=== PATIENT | male | born 1960 | race Caucasian/White ===

== ENCOUNTER 2019-07-14 13:17 | Emergency (ER) | payer MEDICAID ==
[~2019-07-14] VITALS: Ht 188 cm; Wt 109.0 kg
[~2019-07-14 13:17] MED LIST: ASPI-1264 PO; BENA40TA73 PO; DIPH-423 PO; FISH OIL DR 1,1 EACH PO; HCTZ25T PO; HYT1T PO; NOR5T PO; NORCO10T PO; ZOC40T PO
[2019-07-14] MEDS ORDERED: ketorolac trometh inj. 60 MG/2 ML VIAL IM ONE (14:15)
[2019-07-14] MEDS ORDERED: orphenadrine citrate 60mg/2ml inj. IM ONE (14:15)
[2019-07-14] MEDS ORDERED: NAPR-56 PO (14:18)
[2019-07-14] MEDS ORDERED: METH-360 PO (14:18)
[2019-07-14 15:34] VITALS: BP 164/88
== END 2019-07-14 15:44 | disposition home or self-care (01) ==
LOC: ER 13:18
DX: S39.012A Strain of muscle, fascia and tendon of lower back, initial encounter (principal); I10 Essential (primary) hypertension; G89.29 Other chronic pain; Z88.1 Allergy status to other antibiotic agents; Z79.82 Long term (current) use of aspirin; Z79.899 Other long term (current) drug therapy; X50.1XXA Overexertion from prolonged static or awkward postures, initial encounter; Y93.89 Activity, other specified; Y92.89 Other specified places as the place of occurrence of the external cause; Y99.8 Other external cause status
CPT/HCPCS: 72100; 96372; 99283; J1885; J2360

== ENCOUNTER 2021-06-03 20:14 | Emergency (ER) | payer MEDICAID ==
[~2021-06-03 20:14] MED LIST changes: -HCTZ25T PO; +HYDR25TA5 PO; +METH-360 PO
== END 2021-06-03 23:03 | disposition left against medical advice (07) ==
LOC: ER 20:15
DX: R10.9 Unspecified abdominal pain (principal); Z53.21 Procedure and treatment not carried out due to patient leaving prior to being seen by health care provider

== ENCOUNTER 2021-09-05 12:48 | Emergency (ER) | payer MEDICAID ==
[~2021-09-05] VITALS: Ht 188 cm; Wt 110.0 kg
[2021-09-05 12:59] VITALS: BP 164/90
[2021-09-05 13:44] LABS: BASOPHILS # (AUTO) 0.1 X10'3 (0-0.2); BASOPHILS % (AUTO) 0.5 % (0-1); EOSINOPHILS # (AUTO) 0.3 X10'3 (0-0.9); EOSINOPHILS % (AUTO) 2.2 % (0-6); HEMATOCRIT 38.9 % (42.0-52.0); HEMOGLOBIN 13.6 g/dl (14.0-17.9); LYMPHOCYTES # (AUTO) 2.1 X10'3 (1.1-4.8); LYMPHOCYTES % (AUTO) 17.5 % (21-51); MEAN CORPUSCULAR VOLUME 91.4 FL (78-98); MEAN PLATELET VOLUME 8.2 FL (7.4-10.4); MONOCYTES # (AUTO) 0.7 X10'3 (0-0.9); MONOCYTES % (AUTO) 6.2 % (2-12); NEUTROPHILS # (AUTO) 8.8 X10'3 (1.8-7.7); NEUTROPHILS % (AUTO) 73.6 % (42-75); PLATELET COUNT 363 X10'3 (140-440); RED BLOOD COUNT 4.26 X10'6 (4.70-6.10); RED CELL DISTRIBUTION WIDTH 12.7 % (11.5-14.5); WHITE BLOOD COUNT 11.9 X10'3 (4.5-11.0)
[2021-09-05 14:03] LABS: PARTIAL THROMBOPLASTIN TIME 30 SECONDS (22-32)
[2021-09-05 14:08] LABS: ALANINE AMINOTRANSFERASE 42 U/L (12-78); ALBUMIN 3.7 G/DL (3.4-5.0); ALKALINE PHOSPHATASE 90 IU/L (46-116); ANION GAP 14 (8-16); ASPARTATE AMINO TRANSFERASE 20 U/L (10-37); BILIRUBIN,TOTAL 0.5 MG/DL (0.1-1.0); BLOOD UREA NITROGEN 17 MG/DL (7-18); BUN/CREATININE RATIO 11.8 (5.4-32.0); CALCIUM 8.4 MG/DL (8.5-10.1); CHLORIDE 105 MMOL/L (99-107); CREATININE 1.44 MG/DL (0.60-1.10); GLUCOSE 168 MG/DL (70-104); LIPASE 53 U/L (73-393); POTASSIUM 3.5 MMOL/L (3.5-5.1); SODIUM 142 MMOL/L (135-145); TOTAL CARBON DIOXIDE 23.3 MMOL/L (24-32); TOTAL PROTEIN 7.5 G/DL (6.4-8.2); eGFR 50 ML/MIN
[2021-09-05] MEDS ORDERED: iohexol 300mg/ml 100ml inj. ONE (16:24)
== END 2021-09-05 20:08 | disposition left against medical advice (07) ==
LOC: ER 12:49
DX: R10.32 Left lower quadrant pain (principal); I10 Essential (primary) hypertension; G89.29 Other chronic pain; F17.210 Nicotine dependence, cigarettes, uncomplicated; Z88.1 Allergy status to other antibiotic agents; Z79.82 Long term (current) use of aspirin; Z79.899 Other long term (current) drug therapy; Z53.21 Procedure and treatment not carried out due to patient leaving prior to being seen by health care provider
CPT/HCPCS: 36415; 80053; 83690; 85025; 85610; 85730; 86885; 86900; 86901; Q9967

== ENCOUNTER 2022-03-30 08:30 | Day surgery (SDC) | payer MEDICAID ==
[2022-03-24 11:48] LABS: BASOPHILS # (AUTO) 0.1 X10'3 (0-0.2); BASOPHILS % (AUTO) 0.6 % (0-1); EOSINOPHILS # (AUTO) 0.4 X10'3 (0-0.9); EOSINOPHILS % (AUTO) 4.1 % (0-6); LYMPHOCYTES # (AUTO) 1.8 X10'3 (1.1-4.8); LYMPHOCYTES % (AUTO) 19.2 % (21-51); MEAN CORPUSCULAR HEMOGLOBIN 30.4 PG (27.0-31.0); MEAN CORPUSCULAR HGB CONC 33.7 g/dL (33.0-36.5); MEAN CORPUSCULAR VOLUME 90.2 FL (78-98); MEAN PLATELET VOLUME 7.7 FL (7.4-10.4); MONOCYTES # (AUTO) 0.5 X10'3 (0-0.9); MONOCYTES % (AUTO) 5.8 % (2-12); NEUTROPHILS # (AUTO) 6.4 X10'3 (1.8-7.7); NEUTROPHILS % (AUTO) 70.3 % (42-75); PRE OP HEMATOCRIT 40.3 % (42.0-52.0); PRE OP HEMOGLOBIN 13.6 g/dL (14.0-17.9); PRE OP PLATELET COUNT 391 X10'3 (140-440); RED BLOOD COUNT 4.47 X10'6 (4.70-6.10); RED CELL DISTRIBUTION WIDTH 13.1 % (11.5-14.5)
[2022-03-24 12:03] LABS: ALBUMIN 3.6 G/DL (3.4-5.0); ALBUMIN/GLOBULIN RATIO 0.9 (1.1-1.5); ALKALINE PHOSPHATASE 103 IU/L (46-116); BLOOD UREA NITROGEN 17 MG/DL (7-18); BUN/CREATININE RATIO 12.1 (5.4-32.0); CALCIUM 8.6 MG/DL (8.5-10.1); CHLORIDE 102 MMOL/L (99-107); CREATININE 1.41 MG/DL (0.60-1.10); PRE OP ALT 37 U/L (30-65); PRE OP ANION GAP 9 (8-16); PRE OP AST 19 U/L (10-37); PRE OP BILIRUB, TOTAL 0.5 MG/DL (0.0-1.0); PRE OP GLUCOSE 190 MG/DL (70-104); PRE OP POTASSIUM 3.9 MMOL/L (3.4-5.1); PRE OP SODIUM 138 MMOL/L (135-145); TOTAL CARBON DIOXIDE 27.4 MMOL/L (24-32); TOTAL PROTEIN 7.4 G/DL (6.4-8.2); eGFR 51 ML/MIN
[2022-03-24 12:05] LABS: HEMOGLOBIN A1C 7.4 % (4.5-6.2)
[~2022-03-30] VITALS: Ht 188 cm; Wt 109.5 kg
[2022-03-30] VITALS (15 sets, daily range): BP systolic 120–167; BP diastolic 65–82
[~2022-03-30 08:30] MED LIST changes: -DIPH-423 PO; +DOCUMENT DATE & TIME OF BETA-BLOCKER PO ONE; -FISH OIL DR 1,1 EACH PO; +FURO40TA4 PO; -HYDR25TA5 PO; +INSU100I31 SQ; +LABE100T5 PO; -METH-360 PO; +NIFE90TA61 PO; -NOR5T PO; +TRAZ150T78 PO; -ZOC40T PO; +albuterol 2.5 MG/3 ML nebule NEB ONE; +famotidine 20mg tablet PO ONE; +ringers solution, lacted 1,000 ML IV SCH
[2022-03-30] MEDS ORDERED: normal saline 500ml IV soln 500 ML IV ONE (10:35)
[2022-03-30] MEDS ORDERED: HYDROcodone/acetaminophen 10/325mg tab PO ONE (11:30)
[2022-03-30] MEDS ORDERED: BUPIVAcaine 0.5% inj/PF 0 ML ONE (12:15)
[2022-03-30] MEDS ORDERED: epiNEPHrine 1 mg/ml inj ONE (12:40)
[2022-03-30] MEDS ORDERED: dexamethasone sod phosphate 10mg/ml inj ONE (13:17)
[2022-03-30] MEDS ORDERED: sevoflurane 250ml liquid IH ONE (13:17)
[2022-03-30] MEDS ORDERED: LIDOcaine 1% (10mg/ml)w/preservative inj. 20ml MDV ONE (13:17)
[2022-03-30] MEDS ORDERED: ondansetron/PF 4mg/2ml inj ONE (13:17)
[2022-03-30] MEDS ORDERED: fentaNYL/PF 50MCG/1 ML 2ML syringe ONE (13:21)
[2022-03-30] MEDS ORDERED: MIDAZolam 1 MG/ML 5ML VIAL ONE (13:21)
[2022-03-30] MEDS ORDERED: ROPIVAcaine 0.5% (5mg/ml) 30ml vial ONE (13:22)
[2022-03-30] MEDS ORDERED: propofol inj 20 ML IV ONE (13:23)
[2022-03-30] MEDS ORDERED: clindamycin phosphate 150mg/ml inj. ONE ×2 (13:32→13:49)
[2022-03-30] MEDS ORDERED: vancomycin 1,500 MG in NS 300ml IV soln IV ONE (14:05)
[2022-03-30] MEDS ORDERED: ringers solution, lacted 1,000 ML IV SCH (14:20)
[2022-03-30] MEDS ORDERED: ROPIVAcaine 0.2%/PF PUMP/bolus 545 ML INTERSCALE SCH (14:20)
[2022-03-30] MEDS ORDERED: morphine 2 MG/ML inj. syringe IV PRN (14:20)
[2022-03-30] MEDS ORDERED: morphine 4 MG/ML inj SYRINge IV PRN (14:20)
[2022-03-30] MEDS ORDERED: ondansetron/PF 4mg/2ml inj IV PRN (14:20)
[2022-03-30] MEDS ORDERED: meperidine/PF 25mg/ml syringe IV PRN ×3 (14:20)
[2022-03-30] MEDS ORDERED: proCHLORperazine 10 MG/2 ml inj IV PRN (14:20)
[2022-03-30] MEDS ORDERED: ROPIVAcaine 0.2% (10 MG/5 ML) BOLUS INJECTION INTERSCALE PRN (14:20)
[2022-03-30] MEDS ORDERED: HYDROcodone/acetaminophen 10/325mg tab PO PRN (15:40)
--- NOTE | 2022-03-30 15:45 | NUR ---
Received from OR via [facility], accompanied by Anesthesiologist FOSTER and report given by Anesthesiolgist, ACOMPANIED ALSO BY VOLUNTEER COORDINATOR. PT AWAKE TO VERBAL STIMULI, VSS. SHOULDER IMMOBILIZER APPROPRIETLY IN PLACE, WITH ICE APPLIED. DRESSING TO INCISION DRY AND INTACT. NO COMPLAINTS OF PAIN. PATENT AIRWAY, BREATHS NORMAL. Addendum: 03/30/22 at 1610 by Humphrey Schwab RN Amended: Links added.
--- NOTE | 2022-03-30 18:15 | NUR ---
PT DISCHARGED HOME WITH SIGNIFICANT OTHER IN POV, BROUGHT TO CAR VIA WHEELCHAIR WITHOUT INCIDENT. DC PAPERWORK PROVIDED WITH INSTRUCTIONS. QUESTIONS ADDRESSED AND FOLLOW UP PLAN OF CARE DISCUSSED. PAIN PUMP EDUCATION ALSO PROVIDED WITH QUESTIONS ADDRESSED. PT AND SIGNIFICANT OTHER VERBALIZED UNDERSTANDING. PT INDEPENDENT IN AMBULATION, STEADY GAIT. Addendum: 03/30/22 at 1907 by Humphrey Schwab RN Amended: Links added.
== END 2022-03-30 18:15 | disposition home or self-care (01) ==
LOC: PAS 08:30 → UNDOADMIN 08:42 → PAS IN 08:42 → ORTHO 4S 11:00 → PAS IN 11:00 → UNDODISIN 14:05 → PAS 18:15
PROVIDERS: ATTEND Orthopaedic Surgery
DX: M19.011 Primary osteoarthritis, right shoulder (principal); M75.51 Bursitis of right shoulder; M75.31 Calcific tendinitis of right shoulder; M75.41 Impingement syndrome of right shoulder; M25.711 Osteophyte, right shoulder; G89.18 Other acute postprocedural pain; F17.210 Nicotine dependence, cigarettes, uncomplicated; E11.22 Type 2 diabetes mellitus with diabetic chronic kidney disease; I12.9 Hypertensive chronic kidney disease with stage 1 through stage 4 chronic kidney disease, or unspecified chronic kidney disease; N18.30 Chronic kidney disease, stage 3 unspecified; J44.9 Chronic obstructive pulmonary disease, unspecified; G47.30 Sleep apnea, unspecified; I25.2 Old myocardial infarction; Z95.0 Presence of cardiac pacemaker; Z88.1 Allergy status to other antibiotic agents; Z79.899 Other long term (current) drug therapy; Z79.82 Long term (current) use of aspirin; Z20.822 Contact with and (suspected) exposure to COVID-19
CPT/HCPCS: 29824; 29826; 29828; 36415; 64416; 71046; 76942; 80053; 82948; 83036; 85025; C1713; J2250; J2704; J2795; J3010; J3490; J7120; U0003; U0005; Z7506; Z7508; Z7512; A4565; A4618; A6253; A6449; A7000; J0171; J1100; J2405; J3370; J7040; S0020

== ENCOUNTER 2022-07-07 09:43 | Outpatient (CLI) | payer MEDICAID ==
[~2022-07-07 09:43] MED LIST changes: -DOCUMENT DATE & TIME OF BETA-BLOCKER PO ONE; -albuterol 2.5 MG/3 ML nebule NEB ONE; -famotidine 20mg tablet PO ONE; -ringers solution, lacted 1,000 ML IV SCH
[2022-07-07 10:26] LABS: BASOPHILS % (AUTO) 0.2 % (0-1); EOSINOPHILS # (AUTO) 0.2 X10'3 (0-0.9); HEMATOCRIT 39.8 % (42.0-52.0); HEMOGLOBIN 13.8 g/dl (14.0-17.9); LYMPHOCYTES # (AUTO) 2.1 X10'3 (1.1-4.8); LYMPHOCYTES % (AUTO) 19.3 % (21-51); MEAN CORPUSCULAR HEMOGLOBIN 31.1 PG (27.0-31.0); MEAN CORPUSCULAR HGB CONC 34.6 g/dL (33.0-36.5); MEAN PLATELET VOLUME 8.1 FL (7.4-10.4); MONOCYTES # (AUTO) 0.6 X10'3 (0-0.9); MONOCYTES % (AUTO) 5.8 % (2-12); NEUTROPHILS # (AUTO) 7.9 X10'3 (1.8-7.7); NEUTROPHILS % (AUTO) 72.7 % (42-75); PLATELET COUNT 391 X10'3 (140-440); RED BLOOD COUNT 4.42 X10'6 (4.70-6.10); WHITE BLOOD COUNT 10.9 X10'3 (4.5-11.0)
[2022-07-07 10:38] LABS: ALANINE AMINOTRANSFERASE 35 U/L (12-78); ALBUMIN 3.5 G/DL (3.4-5.0); ALBUMIN/GLOBULIN RATIO 0.9 (1.1-1.5); ALKALINE PHOSPHATASE 107 IU/L (46-116); ANION GAP 10 (8-16); ASPARTATE AMINO TRANSFERASE 19 U/L (10-37); BILIRUBIN,TOTAL 0.4 MG/DL (0.1-1.0); BLOOD UREA NITROGEN 23 MG/DL (7-18); CALCIUM 8.5 MG/DL (8.5-10.1); CHLORIDE 102 MMOL/L (99-107); CHOL/HDL RATIO 6.1 (0.00-4.99); CHOLESTEROL 177 MG/DL (0-200); CREATININE 1.44 MG/DL (0.60-1.10); GLUCOSE 134 MG/DL (70-104); HDL CHOLESTEROL 29 MG/DL (35-60); POTASSIUM 3.7 MMOL/L (3.5-5.1); SODIUM 139 MMOL/L (135-145); TOTAL CARBON DIOXIDE 26.7 MMOL/L (24-32); TOTAL PROTEIN 7.3 G/DL (6.4-8.2); eGFR 50 ML/MIN
[2022-07-07 10:39] LABS: LDL CHOLESTEROL 122 MG/DL (50-100); TRIGLYCERIDES 143 MG/DL (20-135)
== END 2022-07-07 23:59 | disposition home or self-care (01) ==
LOC: LAB 09:43
PROVIDERS: ATTEND Physician Assistant
DX: I48.0 Paroxysmal atrial fibrillation (principal); R06.02 Shortness of breath; R55 Syncope and collapse
CPT/HCPCS: 36415; 80053; 80061; 85025

== ENCOUNTER 2022-09-28 10:14 | Emergency (ER) | payer MEDICAID ==
[~2022-09-28] VITALS: Ht 190.5 cm; Wt 106.5 kg
[~2022-09-28 10:14] MED LIST changes: -LABE100T5 PO; +LABE100T8 PO
[2022-09-28 10:39] VITALS: BP 158/69
== END 2022-09-28 11:27 | disposition home or self-care (01) ==
LOC: ER 10:16
DX: S93.401A Sprain of unspecified ligament of right ankle, initial encounter (principal); G89.29 Other chronic pain; M54.9 Dorsalgia, unspecified; I10 Essential (primary) hypertension; W51.XXXA Accidental striking against or bumped into by another person, initial encounter; Y93.89 Activity, other specified; Y92.89 Other specified places as the place of occurrence of the external cause; Y99.8 Other external cause status
CPT/HCPCS: 73630; 99283; A6449

== ENCOUNTER 2023-10-15 07:12 | Outpatient (CLI) | payer MEDICAID ==
[2023-10-15] MEDS ORDERED: iohexol 350MG/ML 100ml bottle IV ONE (07:30)
[2023-10-15 07:42] LABS: BASOPHILS # (AUTO) 0.1 X10'3 (0-0.2); BASOPHILS % (AUTO) 0.4 % (0-1); EOSINOPHILS # (AUTO) 0.1 X10'3 (0-0.9); EOSINOPHILS % (AUTO) 0.9 % (0-6); HEMATOCRIT 40.9 % (42.0-52.0); LYMPHOCYTES # (AUTO) 2.5 X10'3 (1.1-4.8); LYMPHOCYTES % (AUTO) 18.9 % (21-51); MEAN CORPUSCULAR HEMOGLOBIN 31.5 PG (27.0-31.0); MEAN CORPUSCULAR HGB CONC 34.3 g/dL (33.0-36.5); MEAN CORPUSCULAR VOLUME 91.9 FL (78-98); MEAN PLATELET VOLUME 7.8 FL (7.4-10.4); MONOCYTES % (AUTO) 7.6 % (2-12); NEUTROPHILS # (AUTO) 9.7 X10'3 (1.8-7.7); NEUTROPHILS % (AUTO) 72.2 % (42-75); PLATELET COUNT 376 X10'3 (140-440); RED BLOOD COUNT 4.46 X10'6 (4.70-6.10); RED CELL DISTRIBUTION WIDTH 13.2 % (11.5-14.5); WHITE BLOOD COUNT 13.4 X10'3 (4.5-11.0)
[2023-10-15 07:52] LABS: APTT 27 SECONDS (22-32); PROTHROMBIN TIME 10.5 SECONDS (9.0-12.0)
[2023-10-15 08:00] LABS: ALANINE AMINOTRANSFERASE 36 U/L (12-78); ALBUMIN 3.4 G/DL (3.4-5.0); ALBUMIN/GLOBULIN RATIO 0.9 (1.1-1.5); ALKALINE PHOSPHATASE 107 IU/L (46-116); ANION GAP 7 (8-16); ASPARTATE AMINO TRANSFERASE 17 U/L (10-37); BILIRUBIN,TOTAL 0.3 MG/DL (0.1-1.0); BLOOD UREA NITROGEN 26 MG/DL (7-18); BUN/CREATININE RATIO 16.7 (10.0-20.0); CALCIUM 8.8 MG/DL (8.5-10.1); CHLORIDE 101 MMOL/L (99-107); CREATININE 1.56 MG/DL (0.60-1.10); GLUCOSE 129 MG/DL (70-104); POTASSIUM 3.5 MMOL/L (3.5-5.1); SODIUM 136 MMOL/L (135-145); TOTAL CARBON DIOXIDE 28.3 MMOL/L (24-32); eGFR 45 ML/MIN
== END 2023-10-15 23:59 | disposition home or self-care (01) ==
LOC: RAD 07:12
PROVIDERS: ATTEND Student in an Organized Health Care Education/Training Program
DX: I70.0 Atherosclerosis of aorta (principal); I25.10 Atherosclerotic heart disease of native coronary artery without angina pectoris; M47.814 Spondylosis without myelopathy or radiculopathy, thoracic region; I48.92 Unspecified atrial flutter; I48.91 Unspecified atrial fibrillation
CPT/HCPCS: 36415; 75572; 80053; 85025; 85610; 85730; J3490; Q9967

== ENCOUNTER 2023-11-04 11:20 | Inpatient (IN) | payer MEDICAID ==
[2023-11-01 10:51] LABS: BILIRUBIN,URINE NEGATIVE (Neg); CLARITY,URINE CLEAR (Clear); COLOR,URINE YELLOW (Yellow); GLUCOSE, URINE NEGATIVE (Neg); KETONES,URINE NEGATIVE (Neg); LEUKOCYTE ESTERASE ,URINE NEGATIVE (Neg); NITRITES, URINE NEGATIVE (Neg); OCCULT BLOOD,URINE NEGATIVE (Neg); PH,URINE 5.5 (4.8-8.0); PROTEIN,URINE 100 mg/dl (Neg); UROBILINOGEN,URINE 0.2 E.U/dL (0.2-1.0)
[2023-11-01 10:54] LABS: BASOPHILS # (AUTO) 0.1 X10'3 (0-0.2); BASOPHILS % (AUTO) 0.7 % (0-1); EOSINOPHILS # (AUTO) 0.4 X10'3 (0-0.9); EOSINOPHILS % (AUTO) 3.6 % (0-6); LYMPHOCYTES # (AUTO) 1.9 X10'3 (1.1-4.8); LYMPHOCYTES % (AUTO) 19.2 % (21-51); MEAN CORPUSCULAR HEMOGLOBIN 31.6 PG (27.0-31.0); MEAN CORPUSCULAR HGB CONC 34.2 g/dL (33.0-36.5); MEAN CORPUSCULAR VOLUME 92.6 FL (78-98); MONOCYTES # (AUTO) 0.7 X10'3 (0-0.9); MONOCYTES % (AUTO) 7.6 % (2-12); NEUTROPHILS # (AUTO) 6.8 X10'3 (1.8-7.7); NEUTROPHILS % (AUTO) 68.9 % (42-75); PRE OP HEMATOCRIT 42.2 % (42.0-52.0); PRE OP HEMOGLOBIN 14.4 g/dL (14.0-17.9); PRE OP PLATELET COUNT 356 X10'3 (140-440); PRE OP WHITE BLOOD COUNT 9.8 10'3 (4.8-10.8); RED BLOOD COUNT 4.56 X10'6 (4.70-6.10); RED CELL DISTRIBUTION WIDTH 13.3 % (11.5-14.5)
[2023-11-01 10:56] LABS: UA COLLECTION TYPE CLN CATCH MIDSTREAM
[2023-11-01 10:58] LABS: BACTERIA,URINE FEW /HPF (Neg); RBC,URINE 0-2 /HPF (0-2); SQUAMOUS EPITHELIAL CELL,UR NONE SEEN /LPF (FEW); WBC,URINE 0-4 /HPF (0-4)
[2023-11-01 11:05] LABS: PRE OP PROTIME 10.5 SECONDS (9.0-12.0)
[2023-11-01 11:06] LABS: ALBUMIN 3.3 G/DL (3.4-5.0); ALBUMIN/GLOBULIN RATIO 0.8 (1.1-1.5); ALKALINE PHOSPHATASE 113 IU/L (46-116); BLOOD UREA NITROGEN 17 MG/DL (7-18); BUN/CREATININE RATIO 11.7 (10.0-20.0); CALCIUM 8.8 MG/DL (8.5-10.1); CHLORIDE 100 MMOL/L (99-107); CREATININE 1.45 MG/DL (0.60-1.10); PRE OP ALT 43 U/L (30-65); PRE OP ANION GAP 6 (8-16); PRE OP AST 18 U/L (10-37); PRE OP BILIRUB, TOTAL 0.2 MG/DL (0.0-1.0); PRE OP GLUCOSE 111 MG/DL (70-104); PRE OP SODIUM 134 MMOL/L (135-145); TOTAL CARBON DIOXIDE 28.5 MMOL/L (24-32); TOTAL PROTEIN 7.2 G/DL (6.4-8.2); eGFR 49 ML/MIN
[2023-11-01 11:20] LABS: PRE OP POTASSIUM 3.3 MMOL/L (3.4-5.1)
[2023-11-01 11:29] LABS: HEMOGLOBIN A1C 7.1 % (4.5-6.2)
[2023-11-04] VITALS (28 sets, daily range): BP systolic 147–212; BP diastolic 73–114; PULSE 60–82; RESP 10–19; TEMP 97.5–98; O2SAT 76–99
[~2023-11-04] VITALS: Ht 188 cm; Wt 111.1 kg
[~2023-11-04 11:20] MED LIST changes: +ALBU8HFA PO; +APIX5TAB3 PO; -ASPI-1264 PO; +CLON0.3T PO; +DOCUMENT DATE & TIME OF BETA-BLOCKER PO ONE; +DOXA-8 PO; +GABA300C PO; -LABE100T8 PO; +LABE200T8 PO; +NITR0.4T51 SL; +TIOT4MIS3 PO; +TRAZ-251 PO; -TRAZ150T78 PO; +famotidine 20mg tablet PO ONE; +ondansetron/PF 4mg/2ml inj IV PRN; +ringers solution, lacted 1,000 ML IV SCH; +vancomycin 1,500 MG in NS 300ml IV soln IV ONE
[2023-11-04] MEDS ORDERED: ringers solution, lacted 1,000 ML IV SCH (12:35)
[2023-11-04] MEDS ORDERED: morphine 2 MG/ML inj. syringe IV PRN (12:35)
[2023-11-04] MEDS ORDERED: morphine 4 MG/ML inj SYRINge IV PRN (12:35)
[2023-11-04] MEDS ORDERED: meperidine/PF 25mg/ml syringe IV PRN ×2 (12:35)
[2023-11-04] MEDS ORDERED: proCHLORperazine 10 MG/2 ml inj IV PRN ×2 (12:35→14:05)
[2023-11-04] MEDS ORDERED: ondansetron/PF 4mg/2ml inj IV PRN ×2 (12:35→14:05)
[2023-11-04] MEDS ORDERED: HYDROcodone/acetaminophen 10/325mg tab PO PRN (12:45)
[2023-11-04] MEDS ORDERED: albuterol 2.5 MG/3 ML nebule NEB PRN (12:45)
[2023-11-04] MEDS ORDERED: traZODone 50mg tablet PO PRN (12:45)
[2023-11-04] MEDS ORDERED: nitroGLYCERIN 0.4mg SUBLingual tab SL PRN (12:45)
[2023-11-04] MEDS ORDERED: iohexol 350 MG/ML 50ML vial IV ONE ×3 (12:50→13:54)
[2023-11-04] MEDS ORDERED: heparin 1,000 UNITS/NS 500ml 500 ML ONE ×2 (12:50→12:51)
[2023-11-04] MEDS ORDERED: LIDOcaine 1% (10mg/ml) 2ml vial ONE (12:53)
[2023-11-04] MEDS: cloNIDine 0.1 mg tablet PO SCH ×2 (13:00→22:19)
[2023-11-04] MEDS ORDERED: rocuronium 10mg/ml inj IV ONE (13:01)
[2023-11-04] MEDS ORDERED: midazolam 1 mg/ML 2ml injection ONE (13:01)
[2023-11-04] MEDS ORDERED: fentaNYL /PF 50mcg/ml 5ml ampule ONE (13:01)
[2023-11-04] MEDS ORDERED: ondansetron/PF 4mg/2ml inj ONE (13:02)
[2023-11-04] MEDS ORDERED: propofol inj 20 ML IV ONE (13:02)
[2023-11-04] MEDS ORDERED: sevoflurane 250ml liquid IH ONE (13:02)
[2023-11-04] MEDS ORDERED: heparin 1,000unit/ml 10ml vial 10 ML ONE ×2 (13:15→13:29)
[2023-11-04] MEDS ORDERED: dexamethasone sod phosphate 4mg/ml inj. ONE (13:30)
[2023-11-04] MEDS ORDERED: neostigmine methylsulfate 1 MG/ML 10ml vial ONE (14:03)
[2023-11-04] MEDS ORDERED: glycopyrrolate 0.2mg/ml inj ONE (14:03)
[2023-11-04] MEDS ORDERED: labetalol 20mg/4ml (5mg/ml) syringe IV PRN (14:05)
[2023-11-04] MEDS ORDERED: potassium CL 10mEq/100ml bag 100 ML IV PRN (14:05)
[2023-11-04] MEDS ORDERED: hydrALAZINE 20mg/ml inj. IV PRN ×2 (14:05→16:40)
[2023-11-04] MEDS ORDERED: magnesium 2GM in 50ml NS 50 ML IV PRN (14:05)
[2023-11-04] MEDS ORDERED: potassium Cl 20 mEq SR tablet PO PRN (14:05)
[2023-11-04] MEDS ORDERED: acetaminophen 325mg tablet PO PRN (14:05)
[2023-11-04] MEDS ORDERED: potassium Cl 40MEQ/1/2NS 520ml 520 ML IV PRN (14:05)
[2023-11-04] MEDS ORDERED: pantoprazole 40mg Tablet.DR PO PRN (14:05)
[2023-11-04] MEDS ORDERED: potassium Cl 40MEQ/270ML bag 250 ML IV PRN (14:05)
[2023-11-04] MEDS ORDERED: ALPRAZolam 0.25mg tablet PO PRN (14:05)
[2023-11-04] MEDS ORDERED: diphenhydrAMINE 25mg capsule PO PRN (14:05)
[2023-11-04] MEDS ORDERED: potassium Cl 20mEq/100mL bag 100 ML IV PRN (14:05)
[2023-11-04] MEDS ORDERED: magnesium 4gm in 100ml NS 100 ML IV PRN (14:05)
[2023-11-04] MEDS: normal saline 1000ml 1,000 ML IV SCH ×2 (14:05→23:26)
[2023-11-04] MEDS ORDERED: docusate sod 100mg capsule PO PRN (14:05)
[2023-11-04] MEDS ORDERED: HYDROcodone/acetaminophen 5mg/325mg tablet PO PRN (14:25)
[2023-11-04] MEDS: labetalol 20mg/4ml (5mg/ml) syringe IV PRN ×2 (15:47→16:06)
[2023-11-04] MEDS: meperidine/PF 25mg/ml syringe IV PRN ×2 (15:49→16:01)
[2023-11-04] MEDS: sod chloride 0.9% 10ml flush syringe IV SCH ×2 (16:00→23:26)
[2023-11-04] MEDS ORDERED: terazosin 5mg capsule PO SCH (21:00)
[2023-11-04] MEDS ORDERED: insulin glargine (Lantus) pen - multi-dose SQ SCH (21:00)
[2023-11-04] MEDS: labetalol 100mg tablet PO SCH (22:18)
[2023-11-04] MEDS: apixaban 5mg tablet PO SCH (22:20)
[2023-11-05] MEDS ORDERED: hydrALAZINE 20mg/ml inj. IV ONE ×2 (01:25→04:00)
[2023-11-05 06:00] VITALS: BP 163/75; PULSE 96; RESP 12; TEMP 97.7; O2SAT 96
[2023-11-05] MEDS ORDERED: doxazosin mesylate 2mg tablet PO SCH (08:00)
[2023-11-05] MEDS ORDERED: lisinopril 20mg tablet PO SCH (08:00)
[2023-11-05] MEDS ORDERED: gabapentin 300mg capsule PO SCH (08:00)
[2023-11-05] MEDS ORDERED: furosemide 40mg tablet PO SCH (08:00)
[2023-11-05] MEDS ORDERED: (Tiotropium Br/Olodaterol HCl (Stiolto Respimat Inhal Spray) PO SCH (08:00)
[2023-11-05] MEDS ORDERED: NIFEdipine XL 30mg tablet PO SCH (08:00)
[2023-11-05] MEDS: apixaban 5mg tablet PO SCH (08:50)
[2023-11-05] MEDS: cloNIDine 0.1 mg tablet PO SCH (08:50)
[2023-11-05] MEDS: labetalol 100mg tablet PO SCH (08:50)
[2023-11-05] MEDS: sod chloride 0.9% 10ml flush syringe IV SCH (08:51)
[2023-11-05 09:29] LABS: BASOPHILS # (AUTO) 0.1 X10'3 (0-0.2); BASOPHILS % (AUTO) 0.6 % (0-1); EOSINOPHILS % (AUTO) 0.2 % (0-6); HEMATOCRIT 42.2 % (42.0-52.0); HEMOGLOBIN 13.9 g/dl (14.0-17.9); LYMPHOCYTES # (AUTO) 1.5 X10'3 (1.1-4.8); LYMPHOCYTES % (AUTO) 10.4 % (21-51); MEAN CORPUSCULAR HEMOGLOBIN 30.8 PG (27.0-31.0); MEAN CORPUSCULAR HGB CONC 32.9 g/dL (33.0-36.5); MEAN CORPUSCULAR VOLUME 93.5 FL (78-98); MEAN PLATELET VOLUME 8.6 FL (7.4-10.4); MONOCYTES # (AUTO) 0.8 X10'3 (0-0.9); MONOCYTES % (AUTO) 5.8 % (2-12); NEUTROPHILS # (AUTO) 11.9 X10'3 (1.8-7.7); PLATELET COUNT 368 X10'3 (140-440); RED BLOOD COUNT 4.51 X10'6 (4.70-6.10); RED CELL DISTRIBUTION WIDTH 13.6 % (11.5-14.5); WHITE BLOOD COUNT 14.3 X10'3 (4.5-11.0)
[2023-11-05 09:42] LABS: ALANINE AMINOTRANSFERASE 40 U/L (12-78); ALBUMIN 3.2 G/DL (3.4-5.0); ALBUMIN/GLOBULIN RATIO 0.8 (1.1-1.5); ALKALINE PHOSPHATASE 98 IU/L (46-116); ANION GAP 9 (8-16); ASPARTATE AMINO TRANSFERASE 23 U/L (10-37); BILIRUBIN,TOTAL 0.5 MG/DL (0.1-1.0); BLOOD UREA NITROGEN 25 MG/DL (7-18); BUN/CREATININE RATIO 16.3 (10.0-20.0); CALCIUM 8.3 MG/DL (8.5-10.1); CHLORIDE 102 MMOL/L (99-107); CREATININE 1.53 MG/DL (0.60-1.10); GLUCOSE 166 MG/DL (70-104); MAGNESIUM 1.8 MG/DL (1.5-2.4); POTASSIUM 3.2 MMOL/L (3.5-5.1); PRO BRAIN NATRIURETIC PEPTIDE 649 PG/ML (0-125); SODIUM 138 MMOL/L (135-145); TOTAL CARBON DIOXIDE 26.6 MMOL/L (24-32); TOTAL PROTEIN 7.1 G/DL (6.4-8.2); eCRCL 57 ML/MIN; eGFR 46 ML/MIN
[2023-11-05] MEDS: normal saline 1000ml 1,000 ML IV SCH (10:05)
[2023-11-05 11:00] VITALS: BP 106/64; PULSE 79; RESP 18; TEMP 98.8; O2SAT 97
== END 2023-11-05 14:53 | disposition home or self-care (01) | DRG 175 ==
LOC: PAS IN 11:20 → PCU 3S 17:34
PROVIDERS: ADMIT Student in an Organized Health Care Education/Training Program; ATTEND Student in an Organized Health Care Education/Training Program
PROC: 03HY32Z Insertion of Monitoring Device into Upper Artery, Percutaneous Approach (ICD-10-PCS; 2023-11-04)
PROC: B24BZZ4 Ultrasonography of Heart with Aorta, Transesophageal (ICD-10-PCS; 2023-11-04)
PROC: 02L73DK Occlusion of Left Atrial Appendage with Intraluminal Device, Percutaneous Approach (ICD-10-PCS; principal; 2023-11-04 13:02)
DX: I48.91 Unspecified atrial fibrillation (principal); E11.9 Type 2 diabetes mellitus without complications; E78.5 Hyperlipidemia, unspecified; I10 Essential (primary) hypertension; Z00.6 Encounter for examination for normal comparison and control in clinical research program
CPT/HCPCS: 33340; 36415; 71045; 71046; 76937; 80053; 81001; 82948; 83036; 83735; 83880; 85025; 85347; 85610; 85730; 86885; 86900; 86901; 86920; 87081; 93005; 93308; 93312; 93325; A4618; A6258; A6449; C1760; C1889; C1893; C1894; G0378; J0360; J1100; J1644; J1815; J2175; J2250; J2270; J2405; J2704; J2710; J3010; J3370; J3490; J7030; J7040; J7120; Q9967

== ENCOUNTER 2024-02-22 13:24 | Emergency (ER) | payer MEDICAID ==
[~2024-02-22] VITALS: Ht 180.3 cm; Wt 104.5 kg
[~2024-02-22 13:24] MED LIST changes: -DOCUMENT DATE & TIME OF BETA-BLOCKER PO ONE; -famotidine 20mg tablet PO ONE; -ondansetron/PF 4mg/2ml inj IV PRN; -ringers solution, lacted 1,000 ML IV SCH; -vancomycin 1,500 MG in NS 300ml IV soln IV ONE
[2024-02-22 14:42] LABS: BASOPHILS # (AUTO) 0.1 X10'3 (0-0.2); BASOPHILS % (AUTO) 0.7 % (0-1); EOSINOPHILS # (AUTO) 0.2 X10'3 (0-0.9); EOSINOPHILS % (AUTO) 2.2 % (0-6); HEMATOCRIT 43.4 % (42.0-52.0); HEMOGLOBIN 14.8 g/dl (14.0-17.9); MEAN CORPUSCULAR HEMOGLOBIN 31.2 PG (27.0-31.0); MEAN CORPUSCULAR HGB CONC 34.1 g/dL (33.0-36.5); MEAN CORPUSCULAR VOLUME 91.5 FL (78-98); MEAN PLATELET VOLUME 7.7 FL (7.4-10.4); MONOCYTES # (AUTO) 0.7 X10'3 (0-0.9); MONOCYTES % (AUTO) 7.1 % (2-12); NEUTROPHILS # (AUTO) 7.5 X10'3 (1.8-7.7); PLATELET COUNT 403 X10'3 (140-440); RED BLOOD COUNT 4.75 X10'6 (4.70-6.10); RED CELL DISTRIBUTION WIDTH 13.4 % (11.5-14.5); WHITE BLOOD COUNT 10.5 X10'3 (4.5-11.0)
[2024-02-22 14:49] LABS: ALBUMIN 3.2 G/DL (3.4-5.0); ANION GAP 10 (8-16); BLOOD UREA NITROGEN 21 MG/DL (7-18); BUN/CREATININE RATIO 14.8 (10.0-20.0); CALCIUM 8.6 MG/DL (8.5-10.1); CHLORIDE 105 MMOL/L (99-107); CREATININE 1.42 MG/DL (0.60-1.10); GLUCOSE 91 MG/DL (70-104); POTASSIUM 3.7 MMOL/L (3.5-5.1); SODIUM 140 MMOL/L (135-145); eCRCL 56 ML/MIN; eGFR 50 ML/MIN
[2024-02-22 14:53] LABS: PROTHROMBIN TIME 10.5 SECONDS (9.0-12.0)
[2024-02-22 14:58] LABS: APTT 30 SECONDS (22-32)
[2024-02-22] MEDS ORDERED: iohexol 350MG/ML 100ml bottle IV ONE (17:30)
[2024-02-22] MEDS: normal saline 1000ml 1,000 ML IV ONE (17:38)
[2024-02-22 19:10] VITALS: BP 171/81; PULSE 68; RESP 18; TEMP 97.9; O2SAT 96
== END 2024-02-22 19:16 | disposition home or self-care (01) ==
LOC: ER 13:25
DX: H11.32 Conjunctival hemorrhage, left eye (principal)
CPT/HCPCS: 36415; 70450; 70496; 70498; 71045; 80048; 82948; 85025; 85610; 85730; 93005; 96360; 99285; J3490; J7030; Q9967

== ENCOUNTER 2024-04-03 12:27 | Outpatient (CLI) | payer MEDICAID | END 2024-04-03 23:59 | disposition home or self-care (01) | LOC: 64 CT 12:27 | PROVIDERS: ATTEND Student in an Organized Health Care Education/Training Program | DX: Z12.2 Encounter for screening for malignant neoplasm of respiratory organs (principal); J43.9 Emphysema, unspecified; I70.0 Atherosclerosis of aorta; Z87.891 Personal history of nicotine dependence | CPT/HCPCS: 71271 ==

== ENCOUNTER 2024-09-14 13:48 | Emergency (ER) | payer MEDICAID ==
[~2024-09-14] VITALS: Ht 190.5 cm; Wt 111.4 kg
[2024-09-14 13:49] VITALS: BP 158/74; PULSE 80; RESP 16; TEMP 97.3; O2SAT 95
== END 2024-09-14 16:50 | disposition home or self-care (01) ==
LOC: ER 13:49
DX: S93.402A Sprain of unspecified ligament of left ankle, initial encounter (principal); M79.662 Pain in left lower leg; I48.91 Unspecified atrial fibrillation; I10 Essential (primary) hypertension; G89.29 Other chronic pain; M54.9 Dorsalgia, unspecified; F17.210 Nicotine dependence, cigarettes, uncomplicated; Z88.1 Allergy status to other antibiotic agents; Z79.4 Long term (current) use of insulin; Z79.899 Other long term (current) drug therapy; Z95.0 Presence of cardiac pacemaker; X58.XXXA Exposure to other specified factors, initial encounter; Y93.89 Activity, other specified; Y92.89 Other specified places as the place of occurrence of the external cause; Y99.8 Other external cause status
CPT/HCPCS: 73610; 93971; 99284; L4360

== ENCOUNTER 2025-08-28 12:15 | Outpatient (CLI) | payer MEDICARE, MEDICAID ==
--- NOTE | 2025-08-28 14:28 | RADIOLOGY REPORT ---
EXAM: CT CT CHEST LOW DOSE INDICATION: NICOTINE DEPENDENCE, CIGARETTES TECHNIQUE: Low-dose noncontrast CT of the lungs have been obtained. All CT scans at this facility use dose modulation, iterative reconstruction, and/or weight based dosing when appropriate to reduce radiation dose to as low as reasonably achievable. COMPARISON: CT CT CHEST LOW DOSE on DOS: 04/03/24 FINDINGS: LOWER NECK: Unremarkable LYMPH NODES/MEDIASTINUM: Small likely reactive mediastinal lymph nodes, some demonstrating calcification CARDIOVASCULAR: Left atrial appendage occlusion device. Trace pericardial fluid. No significant coronary artery calcifications. UPPER ABDOMEN: Mild left adrenal gland thickening, which may be seen in the setting of adrenal hyperplasia. MUSCULOSKELETAL: Inconspicuous prior healed left posterior 8th, 9th, 10th, 11th rib fractures. 2 left anterior chest electronic devices. CHEST WALL: Unremarkable. LUNG/PLEURAL SPACE: No consolidation, suspicious focal airspace opacity, or suspicious nodules. No pleural effusion or pneumothorax. IMPRESSION: 1. No CT evidence of an acute intrathoracic process. 2. No suspicious pulmonary nodule. 3. Inconspicuous prior healed left posterior 8th, 9th, 10th, 11th rib fractures. LUNG-RADS: 1- Negative RECOMMENDATION: Annual low dose lung screening CT is recommended for 15 years after smoking cessation or until age 77. CITATION: Lung cancer screening categorization and recommendations per [employer] Lung-RADS Version 1.0 (http://www.acr.org/Quality- Safety/Resources/LungRADS).
== END 2025-08-28 23:59 | disposition home or self-care (01) ==
LOC: RAD 12:15
DX: Z12.2 Encounter for screening for malignant neoplasm of respiratory organs (principal); F17.210 Nicotine dependence, cigarettes, uncomplicated; E27.8 Other specified disorders of adrenal gland; Z97.8 Presence of other specified devices
CPT/HCPCS: 71271